=== PATIENT | male | born 1965 | race Caucasian/White ===

== ENCOUNTER 2021-10-01 12:04 | Inpatient (IN) ==
[2021-10-01] MEDS ORDERED: Vancomycin 1,000 MG VIAL IVPB ONE (12:25)
[2021-10-01] MEDS ORDERED: ceFAZolin 1,000 MG in 0.9 % Sodium Chloride 10 ML IVP ONE (12:25)
[2021-10-01] MEDS ORDERED: Iopamidol - 370 500 ML MLS IVP ONE (12:34)
[2021-10-01 12:49] LABS: Basophils # 0.1 K/mcL (0.0-0.2); Basophils % 0.2 %; Hematocrit 43.1 % (37.5-50.1); Hemoglobin 15.1 g/dL (12.9-16.9); Immature Granulocytes % 0.8 % (0-4); Lymphocytes # 0.8 K/mcL (0.6-4.6); Lymphocytes % 2.7 %; Mean Corpuscular Hemoglobin 30.1 pg (28.0-33.3); Mean Platelet Volume 11.1 fL (9.4-12.4); Monocytes % 5.1 %; Neutrophils # 25.9 K/mcL (1.6-8.9); Platelet Count 176 K/mcL (140-400); Red Blood Count 5.01 M/mcL (4.19-5.50); Red Cell Distribution Width 12.6 % (11.5-14.5); Segmented Neutrophils % 91.2 %; White Blood Count 28.4 K/mcL (4.3-11.1)
[2021-10-01 12:54] LABS: Monocytes # 1.5 K/mcL (0.0-1.3)
[2021-10-01 13:00] LABS: VBG HCO3 17 mEq/L (21-27); VBG PCO2 26 mmHg (41-51); VBG PH 7.43 pH Units (7.32-7.42); VBG PO2 55 mmHg (25-50)
[2021-10-01 13:11] LABS: BUN/Creatinine Ratio 21 (6-26); Blood Urea Nitrogen 24 mg/dL (6-20); Calcium 9.6 mg/dL (8.6-10.3); Carbon Dioxide 19 mEq/L (23-29); Chloride 87 mEq/L (98-107); Glucose 259 mg/dL (70-105); Osmolality,Calculated 263 (280-300); Potassium 3.9 mEq/L (3.5-5.1); Sodium 120 mEq/L (136-145); eGFR For African Americans > 60 (> 60); eGFR For Non-African Americans > 60 (> 60)
[2021-10-01] MEDS ORDERED: 0.9 % Sodium Chloride 1,000 ML IVC ONE (13:15)
[2021-10-01] MEDS ORDERED: 0.9 % Sodium Chloride 1,000 ML IVC SCH ×2 (13:30→15:30)
[2021-10-01] MEDS ORDERED: Naloxone 0.4 MG/ML INJ IVP PRN (15:23)
[2021-10-01] MEDS ORDERED: Ondansetron 4 MG/2 ML VIAL IVP PRN (15:23)
[2021-10-01 16:20] LABS: Albumin 3.1 g/dL (3.5-5.7); Albumin/Globulin Ratio 0.9 (1.1-2.2); Bilirubin,Direct 0.6 mg/dL (0.0-0.2); Bilirubin,Indirect 0.5 mg/dL (0.0-1.0); Bilirubin,Total 1.1 mg/dL (0.3-1.0); Globulin 3.4 g/dL (2.4-3.5); Total Protein 6.5 g/dL (6.4-8.9)
[2021-10-01] MEDS: Nicotine 21 MG PATCH.TD24 TD SCH (16:21)
[2021-10-01] MEDS: Piperacillin/Tazobactam 3.375 GM in 0.9 % Sodium Chloride Mini Bag 100 ML IVPB SCH ×2 (16:56→23:41)
[2021-10-01 19:00] LABS: Bilirubin,Urine Small (Negative); Blood,Urine Negative (Negative); Clarity,Urine Slightly Cloudy (Clear); Glucose,Urine (UA) 250 mg/dL (Normal); Ketones,Urine Trace mg/dL (Negative); Leukocyte Esterase,Urine Negative (Negative); Nitrite,Urine Negative (Negative); PH,Urine 5.5 pH Units (5.0-8.0); Protein,Urine 30 mg/dL (Neg-Trace); Specific Gravity,Urine 1.015 (1.010-1.025); Urobilinogen,Urine Normal (Normal)
[2021-10-01 19:02] LABS: Color,Urine Yellow (Yellow)
[2021-10-01 19:03] LABS: Amorphous Sediment,Urine Few per hpf (None-Few)
[2021-10-01] MEDS: 0.9 % Sodium Chloride 1,000 ML IVC SCH (20:47)
[2021-10-01] MEDS: Fluconazole 150 MG TABLET PO SCH (22:48)
[2021-10-01] MEDS: *HR* Heparin 5,000 UNIT/ML VIAL SQ SCH (22:49)
[2021-10-02] MEDS: 0.9 % Sodium Chloride 1,000 ML IVC SCH ×2 (01:24→12:36)
[2021-10-02 03:54] LABS: Alanine Aminotransferase 17 Units/L (7-52); Albumin 2.7 g/dL (3.5-5.7); Albumin/Globulin Ratio 0.9 (1.1-2.2); Alkaline Phosphatase 103 Units/L (34-104); Aspartate Amino Transferase 19 Units/L (13-39); BUN/Creatinine Ratio 24 (6-26); Blood Urea Nitrogen 26 mg/dL (6-20); Calcium 8.8 mg/dL (8.6-10.3); Carbon Dioxide 21 mEq/L (23-29); Chloride 88 mEq/L (98-107); Glucose 242 mg/dL (70-105); Magnesium 1.6 mg/dL (1.6-2.6); Osmolality,Calculated 267 (280-300); Potassium 3.6 mEq/L (3.5-5.1); Sodium 122 mEq/L (136-145); Total Protein 5.7 g/dL (6.4-8.9); eGFR For African Americans > 60 (> 60); eGFR For Non-African Americans > 60 (> 60)
[2021-10-02] MEDS: *HR* Heparin 5,000 UNIT/ML VIAL SQ SCH ×3 (05:53→22:28)
[2021-10-02] MEDS: Piperacillin/Tazobactam 3.375 GM in 0.9 % Sodium Chloride Mini Bag 100 ML IVPB SCH ×3 (07:55→23:55)
[2021-10-02] MEDS: Fluconazole 150 MG TABLET PO SCH (07:56)
[2021-10-02] MEDS: Vancomycin 1,500 MG/265 ML IV.SOLN IVPB SCH ×2 (07:56→19:32)
[2021-10-02] MEDS: Nicotine 21 MG PATCH.TD24 TD SCH (07:56)
[2021-10-02 08:02] LABS: Potassium,Urine 44.4 mEq/L; Sodium, Urine < 10.0 mEq/L
[2021-10-02 08:23] LABS: Basophils % 0.6 %; Eosinophils % 0.1 %; Hematocrit 41.4 % (37.5-50.1); Hemoglobin 14.2 g/dL (12.9-16.9); Immature Granulocytes % 2.3 % (0-4); Lymphocytes # 0.7 K/mcL (0.6-4.6); Lymphocytes % 2.9 %; Mean Corpuscular HGB Conc 34.3 g/dL (31.6-35.5); Mean Corpuscular Hemoglobin 30.2 pg (28.0-33.3); Mean Corpuscular Volume 88.1 fL (83.0-100.0); Mean Platelet Volume 11.4 fL (9.4-12.4); Monocytes # 0.8 K/mcL (0.0-1.3); Monocytes % 3.4 %; Neutrophils # 21.7 K/mcL (1.6-8.9); Platelet Count 129 K/mcL (140-400); Segmented Neutrophils % 90.7 %; White Blood Count 23.9 K/mcL (4.3-11.1)
[2021-10-02 08:28] LABS: Basophils # 0.1 K/mcL (0.0-0.2)
[2021-10-02] MEDS ORDERED: Perflutren Lipid Microsphere 1.3 ML in 0.9 % Sodium Chloride 8.7 ML IVP PRN (09:41)
[2021-10-02] MEDS ORDERED: Dextrose Gel 15 GM/37.5 ML TUBE PO PRN ×2 (11:47)
[2021-10-02] MEDS ORDERED: D5% in Water 1,000 ML IVC PRN (11:47)
[2021-10-02] MEDS ORDERED: *HR* Dextrose 50 % in Water (Syg) 50 ML SYRINGE IVP PRN (11:47)
[2021-10-02] MEDS: Insulin LISPRO 300 UNITS/3 ML VIAL SUBQ SCH ×2 (12:36→16:17)
[2021-10-02] MEDS ORDERED: Furosemide 40 MG/4 ML VIAL IVP ONE (19:38)
[2021-10-02] MEDS ORDERED: Insulin LISPRO 300 UNITS/3 ML VIAL SUBQ SCH (21:00)
[2021-10-03 04:21] LABS: Hematocrit 40.4 % (37.5-50.1); Hemoglobin 13.6 g/dL (12.9-16.9); Mean Corpuscular HGB Conc 33.7 g/dL (31.6-35.5); Mean Platelet Volume 10.9 fL (9.4-12.4); Platelet Count 158 K/mcL (140-400); Red Blood Count 4.54 M/mcL (4.19-5.50); Red Cell Distribution Width 13.3 % (11.5-14.5); White Blood Count 27.8 K/mcL (4.3-11.1)
[2021-10-03 04:38] LABS: Albumin 2.6 g/dL (3.5-5.7); Albumin/Globulin Ratio 0.8 (1.1-2.2); Bilirubin,Total 1.3 mg/dL (0.3-1.0); Calcium 8.8 mg/dL (8.6-10.3); Globulin 3.2 g/dL (2.4-3.5); Magnesium 1.7 mg/dL (1.6-2.6); Potassium 3.6 mEq/L (3.5-5.1); Total Protein 5.8 g/dL (6.4-8.9)
[2021-10-03 04:53] LABS: Thyroid Stimulating Hormone 4.028 mcIU/mL (0.340-5.600)
[2021-10-03] MEDS: *HR* Heparin 5,000 UNIT/ML VIAL SQ SCH (05:17)
[2021-10-03] MEDS: Vancomycin 1,500 MG/265 ML IV.SOLN IVPB SCH (07:29)
[2021-10-03 08:13] LABS: VBG HCO3 11 mEq/L (21-27); VBG PCO2 24 mmHg (41-51); VBG PH 7.27 pH Units (7.32-7.42); VBG PO2 60 mmHg (25-50)
[2021-10-03 08:22] LABS: Calcium 9.1 mg/dL (8.6-10.3); Potassium 3.8 mEq/L (3.5-5.1)
[2021-10-03 08:53] LABS: Estimated Average Glucose 246 mg/dl; Hemoglobin A1C 10.2 %
[2021-10-03] MEDS: Insulin LISPRO 300 UNITS/3 ML VIAL SUBQ SCH (08:57)
[2021-10-03] MEDS: Fluconazole 150 MG TABLET PO SCH (08:57)
[2021-10-03] MEDS ORDERED: Aspirin 81 MG TAB.CHEW PO SCH (09:00)
[2021-10-03] MEDS: Nicotine 21 MG PATCH.TD24 TD SCH (09:03)
[2021-10-03] MEDS ORDERED: Sodium Bicarbonate 50 MEQ in 0.45 % Sodium Chloride 1,000 ML IVC SCH ×3 (09:15→20:15)
[2021-10-03] MEDS ORDERED: 0.9 % Sodium Chloride 1,000 ML IVC SCH (09:15)
[2021-10-03] MEDS: Piperacillin/Tazobactam 3.375 GM in 0.9 % Sodium Chloride Mini Bag 100 ML IVPB SCH (09:15)
[2021-10-03] MEDS ORDERED: Insulin LISPRO 300 UNITS/3 ML VIAL SUBQ SCH ×2 (09:28→21:00)
[2021-10-03] MEDS ORDERED: *HR* Amiodarone 450 MG/9 ML VIAL IVC ONE (10:00)
[2021-10-03] MEDS ORDERED: *HR* EPINEPHrine 1 MG/10 ML SYRINGE ONE (10:00)
[2021-10-03] MEDS ORDERED: EPINEPHrine 1 MG/ML VIAL ONE (10:00)
[2021-10-03] MEDS ORDERED: *HR* Succinylcholine 200 MG/10 ML VIAL IVP ONE (10:00)
[2021-10-03] MEDS ORDERED: *HR* Amiodarone 150 MG/3 ML VIAL IVPB ONE (10:00)
[2021-10-03 11:19] VITALS: BP 91/61; PULSE 63; RESP 17; TEMP 97.7
[2021-10-03 11:33] LABS: Potassium 3.8 mEq/L (3.5-5.1)
[2021-10-03 12:25] LABS: Basophils % 0.1 %; Eosinophils % 0.1 %; Hematocrit 47.5 % (37.5-50.1); Hemoglobin 15.2 g/dL (12.9-16.9); Immature Granulocytes % 8.8 % (0-4); Lymphocytes % 10.1 %; Mean Corpuscular Hemoglobin 30.5 pg (28.0-33.3); Mean Corpuscular Volume 95.2 fL (83.0-100.0); Mean Platelet Volume 11.7 fL (9.4-12.4); Monocytes # 1.8 K/mcL (0.0-1.3); Monocytes % 5.4 %; Neutrophils # 24.9 K/mcL (1.6-8.9); Nucleated Red Blood Cells 0.1 /100 WBC (0); Platelet Count 150 K/mcL (140-400); Red Blood Count 4.99 M/mcL (4.19-5.50); Red Cell Distribution Width 13.9 % (11.5-14.5); Segmented Neutrophils % 75.5 %
[2021-10-03 12:26] LABS: Lymphocytes # 3.3 K/mcL (0.6-4.6)
[2021-10-03 12:27] LABS: INR 1.4; Prothrombin Time 15.8 Seconds (9.4-12.1)
[2021-10-03 12:31] LABS: VBG HCO3 11 mEq/L (21-27); VBG PCO2 69 mmHg (41-51); VBG PO2 38 mmHg (25-50)
[2021-10-03 12:35] LABS: Albumin 2.8 g/dL (3.5-5.7); Albumin/Globulin Ratio 0.8 (1.1-2.2); Bilirubin,Total 1.6 mg/dL (0.3-1.0); Calcium 9.4 mg/dL (8.6-10.3); Globulin 3.6 g/dL (2.4-3.5); Magnesium 2.6 mg/dL (1.6-2.6); Potassium 3.8 mEq/L (3.5-5.1); Total Protein 6.4 g/dL (6.4-8.9)
[2021-10-03 14:40] VITALS: O2SAT 15
== END 2021-10-03 15:15 | disposition expired | DRG 871 ==
LOC: EMEROOGRE 12:04 → INPGRE 12:04
PROVIDERS: ADMIT Internal Medicine; ATTEND Internal Medicine